=== PATIENT | female | born 1985 | race Caucasian/White ===

== ENCOUNTER 2024-03-22 10:02 | Inpatient (IN) | payer OTHER ==
[~2024-03-22 10:02] MED LIST: Acetaminophen 325 MG Tab PO PRN; Acetaminophen/oxyCODONE 325-5 MG Tab PO PRN; Carboprost Tromethamine 250 MCG/1 ML Amp IM PRN; Docusate Sodium 100 MG Cap PO PRN; Methylergonovine 0.2 MG/1 ML Amp IM PRN; Misoprostol 100 MCG Tab RECTAL PRN; Naloxone 2 MG/2 ML Syringe IVPUSH PRN; Ondansetron 4 MG/2 ML SDV IVPUSH PRN; Tranexamic Acid 1,000 MG in Sodium Chloride 0.9% 100 ML IV PRN; diphenhydrAMINE 50 MG/ML SDV IVPUSH PRN; ePHEDrine 50 MG/ML SDV IVPUSH PRN
[2024-03-22] MEDS: Lactated Ringers 1,000 ML IV SCH (10:25)
[2024-03-22 10:29] LABS: HEMATOCRIT 37.7 % (37.0-47.0); MEAN CORPUSCULAR HEMOGLOBIN 26.1 pg (27.0-34.0); MEAN CORPUSCULAR HGB CONC 31.8 g/dL (33.0-35.0); MEAN CORPUSCULAR VOLUME 82.1 fL (80-100); RED BLOOD CELL COUNT 4.59 10^6/uL (4.2-5.4); WHITE BLOOD CELL COUNT,WBC 13.4 10^3/uL (5.0-10.0)
[2024-03-22] MEDS ORDERED: Dexamethasone 4 MG/ML SDV ONE (11:36)
[2024-03-22] MEDS ORDERED: Ondansetron 4 MG/2 ML SDV ONE (11:36)
[2024-03-22] MEDS ORDERED: ceFAZolin 1 GM Vial ONE (11:37)
[2024-03-22] MEDS ORDERED: Tranexamic Acid 1,000 MG/10 ML Vial ONE (11:37)
[2024-03-22] MEDS ORDERED: Oxytocin 10 Units/1 ML SDV ONE (11:37)
[2024-03-22] MEDS ORDERED: ceFAZolin 2 GM Vial ONE (11:37)
[2024-03-22] MEDS: Oxytocin/Normal Saline 30 UNIT/500 ML BAG IV SCH (13:02)
[2024-03-22 14:30] LABS: HEMOGLOBIN 11.1 g/dL (12.0-16.0); MEAN CORPUSCULAR HEMOGLOBIN 26.4 pg (27.0-34.0); MEAN CORPUSCULAR HGB CONC 31.7 g/dL (33.0-35.0); MEAN CORPUSCULAR VOLUME 83.3 fL (80-100); RED BLOOD CELL COUNT 4.2 10^6/uL (4.2-5.4); WHITE BLOOD CELL COUNT,WBC 12.3 10^3/uL (5.0-10.0)
[2024-03-22] MEDS: Prenatal Multivitamin with Calcium/Folic Acid/Iron Tab PO SCH (14:41)
[2024-03-22] MEDS: Simethicone 80 MG Tab.Chew PO SCH ×2 (14:41→17:57)
[2024-03-22] MEDS: ceFAZolin 1 GM Vial IVPUSH ONE (14:41)
[2024-03-22] MEDS: Lactated Ringers 1,000 ML IV ONE (15:08)
[2024-03-22] MEDS: Methylergonovine 0.2 MG Tab PO SCH (15:22)
[2024-03-22] MEDS ORDERED: Acetaminophen 325 MG Tab PO PRN (17:49)
[2024-03-22] MEDS ORDERED: ePHEDrine 50 MG/ML SDV IVPUSH PRN (17:50)
[2024-03-22] MEDS ORDERED: Naloxone 2 MG/2 ML Syringe IVPUSH PRN (17:50)
[2024-03-22] MEDS ORDERED: diphenhydrAMINE 50 MG/ML SDV IVPUSH PRN (17:50)
[2024-03-22] MEDS: Ondansetron 4 MG/2 ML SDV IVPUSH PRN (18:38)
[2024-03-23] MEDS: Acetaminophen/oxyCODONE 325-5 MG Tab PO PRN ×2 (00:15→12:30)
[2024-03-23] MEDS: Docusate Sodium 100 MG Cap PO PRN (00:15)
[2024-03-23] MEDS: Lactated Ringers 1,000 ML IV SCH (00:15)
[2024-03-23 06:39] LABS: HEMATOCRIT 30.7 % (37.0-47.0); HEMOGLOBIN 9.9 g/dL (12.0-16.0); MEAN CORPUSCULAR HEMOGLOBIN 26.8 pg (27.0-34.0); MEAN CORPUSCULAR HGB CONC 32.2 g/dL (33.0-35.0); RED BLOOD CELL COUNT 3.7 10^6/uL (4.2-5.4); WHITE BLOOD CELL COUNT,WBC 15.2 10^3/uL (5.0-10.0)
[2024-03-23] MEDS: Prenatal Multivitamin with Calcium/Folic Acid/Iron Tab PO SCH (08:30)
[2024-03-23] MEDS: Ferrous Sulfate 325 MG Tab PO SCH (08:31)
[2024-03-23] MEDS: Calcium Carbonate 500 MG Tab.Chew PO PRN (12:38)
[2024-03-24] MEDS ORDERED: ceFAZolin 1 GM in Sodium Chloride 0.9% 10 ML IV ONE (10:04)
[2024-03-24] MEDS ORDERED: Tranexamic Acid 1,000 MG/10 ML Vial IV ONE (10:04)
[2024-03-24] MEDS ORDERED: Ketorolac 30 MG/ML SDV IVPUSH ONE (11:50)
[2024-03-24] MEDS ORDERED: Ropivacaine 100 ML EPIDUR ONE (11:50)
[2024-03-24] MEDS ORDERED: Phenylephrine 1% 10 MG/ML SDV IV ONE (11:50)
[2024-03-24] MEDS ORDERED: Ondansetron 4 MG/2 ML SDV IV ONE (11:50)
[2024-03-24] MEDS ORDERED: Dexamethasone 4 MG/ML SDV IV ONE (11:50)
[2024-03-24] MEDS ORDERED: Morphine PF 10 MG/10 ML SDV EPIDUR ONE (11:50)
[2024-03-24] MEDS ORDERED: Lactated Ringers 1,000 ML IV ONE (11:50)
== END 2024-03-24 10:05 | disposition home or self-care (01) | DRG 787 ==
LOC: DL.OB 10:02 → OBSVTOIN 12:26 → DL.OB 12:26
PROVIDERS: ADMIT Family Medicine; ATTEND Family Medicine
PROC: 10D00Z1 Extraction of Products of Conception, Low, Open Approach (ICD-10-PCS; principal; 2024-03-22 12:00)
DX: O34.211 Maternal care for low transverse scar from previous cesarean delivery (principal); D62 Acute posthemorrhagic anemia; O99.214 Obesity complicating childbirth; O99.814 Abnormal glucose complicating childbirth; O99.02 Anemia complicating childbirth; Z3A.39 39 weeks gestation of pregnancy; Z37.0 Single live birth
CPT/HCPCS: 01961; 36415; 85027; 86850; 86900; 86901; 93005; 94010; A9270-GY; J2405; J2590; J7120